=== PATIENT | male | born 1960 | race Caucasian/White ===

== ENCOUNTER 2018-05-30 10:00 | Outpatient (RCR) | payer OTHER ==
[2018-05-20 14:30] VITALS: BP 121/60; PULSE 71; TEMP 97
[~2018-05-30] VITALS: Ht 180.3 cm; Wt 166.3 kg
[~2018-05-30 10:00] MED LIST: BUMEX2 MG PO; CIPRO 500MG TA500 MG PO; GLUCOPHAGE1000 MG PO; GLUCOSAMINE & C1 TAB PO; IMDUR 30MG30 MG/TAB PO; JARDIANCE10 PO; JUVEN1 PDR PO; LANTUS100 U/ML SQ; LIPITOR20 MG PO; MULTIPLE VITAMI1 CAP PO; NITROSTAT0.4 MG/TAB SL; NOVOLOG 100U100 U/M1 SQ; OCUVITE1 TA1 PO; PLAVIX 75MG TAB75 MG PO; SYNTHROID0.075 MG/T PO; VITAMIND3 5000 PO; ZESTRIL2.5 MG PO
[2018-05-30 11:37] VITALS: BP 127/56; PULSE 63; TEMP 98.4
== END 2018-06-07 10:18 | disposition home or self-care (01) ==
LOC: EUO 10:00
DX: S90.819A Abrasion, unspecified foot, initial encounter (principal); Z45.2 Encounter for adjustment and management of vascular access device; Z95.9 Presence of cardiac and vascular implant and graft, unspecified; Z48.00 Encounter for change or removal of nonsurgical wound dressing